=== PATIENT | female | born 2000 | race Caucasian/White ===

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

== ENCOUNTER 2018-04-12 08:14 | Emergency (ER) | payer BC ==
[2018-04-12 08:28] VITALS: BP 115/72
--- NOTE | 2018-04-12 10:18 | UC ---
Abdominal Pain Female HPI - HPI Summary HPI Summary: 18 yo female presents with lower abdominal pain and cramping for the last 3 weeks. She tells me that around this time she noticed she was getting more constipated. Usually would have a soft normal BM once or twice a day, but 3 weeks again her stools changed to small and sometimes hard and only once a day. The lower abdominal comfort started around this time. She also tells me that she has a history of ovarian cysts and endometriosis...sees OBGYN - her last ultrasound was ~2 years ago and cysts had resolved - per pt. She denies fever, chills, SOB, chest pain, n/v, blood in stool, dysuria, urinary urgency/frequency, flank pain, hematuria, blood in stool, vaginal discharge/odor/pain. - History of Current Complaint Chief Complaint: UCAbdominalPain Stated Complaint: ABD PAIN Time Seen by Provider: 04/12/18 09:52 Hx Obtained From: Patient Hx Last Menstrual Period: 04/03/18 Onset/Duration: Gradual Onset Severity Initially: Moderate Severity Currently: Moderate Pain Intensity: 5 Pain Scale Used: 0-10 Numeric Allergies/Adverse Reactions: Allergies Allergy/AdvReac Type Severity Reaction Status Date / Time naproxen Allergy Abdominal Verified 04/12/18 08:20 Pain PMH/Surg Hx/FS Hx/Imm Hx Cardiovascular History: Hypertension - Surgical History Surgical History: None - Family History Known Family History: Positive: None Family History: no reported cardiovascular issues in family lineage - Social History Occupation: Student Lives: With Family Alcohol Use: Rare Substance Use Type: None Substance Use Comment - Amount & Last Used: occasionally Smoking Status (MU): Never Smoked Tobacco - Immunization History Most Recent Tetanus Shot: UTD Review of Systems Constitutional: Negative Skin: Negative Eyes: Negative ENT: Negative Respiratory: Negative Cardiovascular: Negative Gastrointestinal: Abdominal Pain, Other - Constipation Genitourinary: Negative Neurovascular: Negative Musculoskeletal: Negative Neurological: Negative Psychological: Negative All Other Systems Reviewed And Are Negative: Yes Physical Exam - Summary Physical Exam Summary: GENERAL: NAD. WDWN. No pain distress. SKIN: No rashes, sores, lesions, or open wounds. NECK: Supple. Nontender. No lymphadenopathy. CHEST: CTAB. No r/r/w. No accessory muscle use. Breathing comfortably and in no distress. CV: RRR. Without m/r/g. Pulses intact. Brisk cap refill. ABDOMEN: Mild lower abdominal TTP. Moderate RLQ TTP. No distention or guarding. No organomegaly. No CVA tenderness. Bowel sounds present NEURO: Alert. CN II-XII grossly intact. PSYCH: Age appropriate behavior. Triage Information Reviewed: Yes Vital Signs: Initial Vital Signs Temp 98 F 04/12/18 08:21 Pulse 88 04/12/18 08:21 Resp 20 04/12/18 08:21 BP 115/72 04/12/18 08:21 Pulse Ox 100 04/12/18 08:21 Abd Pain Female Course/Dx - Course Course Of Treatment: Preg negative. UA with trace leuks. US: IMPRESSION: In the bilateral ovaries there are mixed echogenicity structures, some. exhibiting fluid fluid levels as described above. The largest in the right measures 4.1 cm. in greatest dimension and the largest in the left and measures 3.2 cm in greatest. dimension. The differential includes mixed age partially involuting follicles with. hemorrhagic transformation. Alternatively endometriomas are also considered in the. differential. There is no prior imaging to comment on chronicity. As clinically warranted. follow-up imaging can be acquired in 6 weeks to determine change or superior. characterization could BE made with contrast-enhanced MRI of the pelvis on a nonemergent. basis. Abdomen XR: IMPRESSION: NORMAL STUDY. I suspect the discomfort she is having is due to the ovarian pathology described above. UA showed trace leuks and will be sent for culture - will hold treatment for UTI at this time as she is having no UTI symptoms. Regarding her constipation - advised to try one dose of OTC miralax in water daily and see if this improves her BMs. She will f/u with her OBGYN regarding ultrasound findings today. Pt agreeable to this plan. - Differential Dx/Diagnosis Provider Diagnoses: Ovarian cysts. Constipation. RLQ pain Discharge - Sign-Out/Discharge Documenting (check all that apply): Discharge/Admit/Transfer - Discharge Plan Condition: Stable Disposition: HOME Patient Education Materials: Ovarian Cyst (ED) Referrals: Cecy Slater MD [Primary Care Provider] - Additional Instructions: If you develop a fever, shortness of breath, chest pain, new or worsening symptoms - please call your PCP or go to the ED. 1) Please schedule a follow up appointment with your OBGYN within the next 4-6 weeks - Billing Disposition and Condition Condition: STABLE Disposition: Home
--- NOTE | 2018-04-12 11:19 | RAD ---
INDICATION: Right-sided pelvic pain in a patient with "history of cysts" COMPARISON: None. TECHNIQUE: Real-time transabdominal and transvaginal ultrasound examination of the female pelvis including grayscale and Doppler color flow imaging. FINDINGS: Uterus: The uterus is normal in size and echogenicity measuring 6.9 x 3.5 x 4.5 cm. The endometrial stripe is smooth and uniform measuring 7 mm in thickness. Ovaries: The right and left ovary measure 5.4 x 3.7 x 5.3 cm and 5.9 x 2.8 x 3.6 cm, respectively. Normal arterial and venous waveforms are identified. Within the right ovary there is a mixed echogenicity structure measuring 4.1 x 3.3 x 3.3 cm. There is no significant vascularity. There is dependent echogenic material with more anechoic material overlying the superior portion consistent with fluid fluid layering. Also in the right ovary is a more heterogeneously echogenic and avascular structure measuring 3.6 x 2.6 x 1.7 cm. In the left ovary there are 3 well-circumscribed structures. The first a heterogeneous and mildly vascular structure measuring 3.2 x 2 point no by 2.4 cm exhibiting fluid fluid levels. The second is mostly echogenic and avascular measuring 2.5 x 1.9 x 1.4 cm. The third is also heterogeneously echogenic and avascular measuring 2.1 x 1.5 x 1.6 cm. There is no free fluid in the cul-de-sac. IMPRESSION: In the bilateral ovaries there are mixed echogenicity structures, some exhibiting fluid fluid levels as described above. The largest in the right measures 4.1 cm in greatest dimension and the largest in the left and measures 3.2 cm in greatest dimension. The differential includes mixed age partially involuting follicles with hemorrhagic transformation. Alternatively endometriomas are also considered in the differential. There is no prior imaging to comment on chronicity. As clinically warranted follow-up imaging can be acquired in 6 weeks to determine change or superior characterization could BE made with contrast-enhanced MRI of the pelvis on a nonemergent basis.
--- NOTE | 2018-04-12 11:29 | RAD ---
INDICATION: Constipation COMPARISON: None TECHNIQUE: A single view of the abdomen is submitted. FINDINGS: Bones: There are no acute bony findings. Soft tissues: The soft tissues appear normal. The psoas margins are sharp. Bowel gas pattern: Normal Calcifications: There are no abnormal calcifications. Other: None IMPRESSION: NORMAL STUDY.
--- NOTE | 2018-04-13 19:36 | PN ---
Progress Note - Progress Note Date of Service: 04/13/18 Note: no growth on urine no change 04/13/2018 19:36
== END 2018-04-12 11:40 | disposition home or self-care (01) ==
LOC: UCEAST 08:14
DX: R10.31 Right lower quadrant pain (principal); N83.202 Unspecified ovarian cyst, left side; N83.201 Unspecified ovarian cyst, right side; K59.00 Constipation, unspecified; I10 Essential (primary) hypertension; Z88.6 Allergy status to analgesic agent
CPT/HCPCS: 74018; 76830; 81003; 84702; 87086; 99211; G0463